=== PATIENT | female | born 1975 | race Caucasian/White ===

== ENCOUNTER 2021-02-19 10:44 | Inpatient (IN) ==
[2021-02-19 10:52] VITALS: BMI 29.5
[2021-02-19] MEDS ORDERED: NS 1000 ML 1,000 ML IV STA (11:39)
--- NOTE | 2021-02-19 11:39 | ED.ABDFE ---
HPI Time Seen Time Seen by Provider: 02/19/21 11:27 PCP Primary Care Physician: Ty HPI Comment HPI Comment: PATIENT WITH HISTORY OF PANCREATITIS, COMPLAINS OF EPIGASTRIC PAIN X 3 DAYS, OCCASIONAL EMESIS, EVALUATED AT HOSPITAL IN [place] YESTERDAY. HAS INCREASING PAIN DISCOMFORT. PAIN SCALE 5/10, RADIATES TO BACK. DENIES FEVER, DIARRHEA, URINARY SYMPTOMS. Complaint Doctors Chief Complaint Comments: PATIENT WITH A HISTORY OF IDIOPATHIC PANCREATITIS COMPLAINS OF EPIGASTRIC PAIN X 3 DAYS, PAIN SCALE 5/10 AFTER TAKING TRAMADOL, HAS OCCASIONAL NAUSEA AND EMESIS. DENIES DIARRHEA, FEVER URINARY SYM PTOMS. Chief Complaint:: Pt c/o abd pain since Thursday. She states she was seen in [place] last night and diagnosed with pancreatitis. Pt says Dr. Crawford advised her to come here for admission. Pt states Morphine increases her pain. COVID-19 Coronavirus risk:travel/contact w/high risk person: No Has patient experienced Coronavirus symptoms: No Reviewed Nurses Notes Review: Yes Source History Provided: Patient Mode of arrival Mode of Arrival: Ambulatory Timing Onset of Chief Complaint: 02/02/21 Came on: Gradually Duration Since Onset: Since Onset How lon Duration: Days Location Location: Epigastric Severity Severity: Moderate Quality Quality: Cramping and Sharp Context History of: Abdominal surgery Modifying factors Worsening Factors: Nothing Associated signs and symptoms Associated Signs and Symptoms: Nausea and Vomiting PMH PMH Past Medical History: Yes Past Medical History: Arthritis and GERD Past Medical History Comment: pancreatitis, SVT, intestinal malrotation Past Surgical History: Yes Surgical History: Appendectomy, Cholecystectomy and Hysterectomy Past Surgical History Comment: LADDS Family History History of Family Medical Conditions: Yes Family Medical History: Cancer and Hypertension Social History Does patient currently use any type of tobacco product: No Have you used tobacco products in the last 12 months: No Type of Tobacco Use: None Does any household member use tobacco: No Alcohol Use: None Do you use any recreational Drugs:: No Lives With: Family Lives Where: Home Travel Risk Coronavirus risk:travel/contact w/high risk person: No Has patient experienced Coronavirus symptoms: No Infectious screening In the last 2 months have you had wt loss of >10#?: NO Have you had fever, night sweats or hemotysis?: No Have you traveled outside the country in the last 6 months?: No Isolation: Standard ROS Review of Systems Constitutional: No Symptoms Reported Eyes: No Symptoms Reported ENTM: No Symptoms Reported Respiratoy: No Symptoms Reported Cardiovascular: No Symptoms Reported Gastrointestinal/Abdominal: See HPI, Abdominal Pain, Nausea and Vomiting Genitourinary: No Symptoms Reported Neurological: No Symptoms Reported Musculoskeletal: No Symptoms Reported Integumentary: No Symptoms Reported Hematologic/Lymphatic: No Symptoms Reported Endocrine: No Symptoms Reported Psychiatric: No Symptoms Reported All Other Systems: Reviewed and Negative PE Vital Signs Vitals: Temperature 97.6 F Pulse Rate [Left Radial] 55 Pulse Rate 68 Respiratory Rate 16 Blood Pressure [Right Arm] 127/72 Blood Pressure 141/80 O2 Sat by Pulse Oximetry 99 General Limitations: No Limitations and Language Barrier General Appearance: Alert and In No Apparent Distress Head Head Exam: Normal Inspection Eyes Eye exam: Normal Appearance, PERRL and EOMI ENT ENT Exam: Normal Exam and Normal Oropharynx Neck Neck Exam: Normal Inspection Chest Chest Inspection: Normal Inspection Respiratory Respiratory Exam: Normal Lung Sounds Bilat Respiratory Exam: Bilateral: Clear to Auscultation Cardiovascular Cardiovascular Exam: Regular Rate and Normal Rhythm Abdominal Exam Abdominal Exam: Normal Inspection, Normal Bowel Sounds, Soft and Tenderness (MODERATE EPIGASTRIC TENDERNESS) Abdominal Tenderness: Epigastrium Rectal Rectal Exam: Deferred Back Back Exam: Normal Inspection Extremeties Extremities Exam: Normal Inspection and Full ROM Neurologic Neurological Exam: Alert and Oriented X3 Psychiatric Psychiatric Exam: Normal Affect and Normal Mood Skin Skin Exam: Warm, Dry and Intact MDM Differential Diagnosis Differential Diagnosis- Considerations may include:: Gastritus/PUD, Inflammatory BD and Pancreatitis COURSE Treatment Treatment: IV NORMAL SALINE 250ML/HR, ZOFRAN 4MG, DILAUDID 1MG IV X 2 DOSES, PROTONIX 40MG IV Consultation Call Returned: 14:30 Consultation Comments: DISCUSSED FINDINGS WITH DR LOUISE FOR ADMIT TO INPATIENT [facility] Labs Reviewed Laboratory Results Reviewed?: Yes Result Diagrams: 02/19/21 14:21 02/19/21 14:21 Laboratory: WBC 15.2 X10^3/uL (3.6-10.0) H 02/19/21 14:21 RBC 4.75 X10^6/uL (3.5-5.4) 02/19/21 14:21 Hgb 13.5 g/dL (12.0-16.0) 02/19/21 14:21 Hct 41.3 % (36.0-47.0) 02/19/21 14:21 MCV 86.9 fL (80.0-100.0) 02/19/21 14:21 MCH 28.5 pg (27.0-34.0) 02/19/21 14:21 MCHC 32.8 g/dL (33.0-35.0) L 02/19/21 14:21 RDW 14.7 % (11.6-16.5) 02/19/21 14:21 Plt Count 318 X10^3/uL (150.0-450.0) 02/19/21 14:21 MPV 7.6 fL (7.4-11.0) 02/19/21 14:21 Neut % (Auto) 83.8 % (42.0-75.0) H 02/19/21 14:21 Lymph % (Auto) 10.7 % (21.0-51.0) L 02/19/21 14:21 [place] % (Auto) 5.2 % (0.0-13.0) 02/19/21 14:21 Eos % (Auto) 0.1 % (0.9-2.9) L 02/19/21 14:21 Baso % (Auto) 0.2 % (0.2-1.0) 02/19/21 14:21 Neut # (Auto) 12.7 x10^3/uL (2.2-4.8) H 02/19/21 14:21 Lymph # (Auto) 1.6 X10^3/uL (1.3-2.9) 02/19/21 14:21 [place] # (Auto) 0.8 x10^3/uL (0.3-0.8) 02/19/21 14:21 Eos # (Auto) 0.0 x10^3/uL (0.0-0.2) 02/19/21 14:21 Baso # (Auto) 0.0 X10^3/uL (0.0-0.1) 02/19/21 14:21 Absolute Nucleated RBC 0.0 /100WBC 02/19/21 14:21 Sodium 141 mmol/L (136-145) 02/19/21 14:21 Corrected Sodium TNP 02/19/21 14:21 Potassium 4.9 mmol/L (3.5-5.1) 02/19/21 14:21 Chloride 106 mmol/L (98-107) 02/19/21 14:21 Carbon Dioxide 28.6 mmol/L (21-32) 02/19/21 14:21 BUN 21 mg/dL (7-18) H 02/19/21 14:21 Creatinine 0.99 mg/dL (0.55-1.02) 02/19/21 14:21 Est GFR (MDRD) Af Amer > 60 (>60) 02/19/21 14:21 Est GFR (MDRD) Non-Af > 60 (>60) 02/19/21 14:21 Glucose 105 mg/dL (65-99) H 02/19/21 14:21 Calcium 8.6 mg/dL (8.5-10.1) 02/19/21 14:21 Corrected Calcium TNP 02/19/21 14:21 Magnesium 2.5 mg/dL (1.7-2.9) 02/19/21 11:44 Total Bilirubin 0.50 mg/dL (0.2-1.0) 02/19/21 14:21 AST 12 Units/L (15-37) L 02/19/21 14:21 ALT 21 Units/L (12-78) 02/19/21 14:21 Alkaline Phosphatase 76 Units/L (46-116) 02/19/21 14:21 Total Protein 7.6 g/dL (6.4-8.2) 02/19/21 14:21 Albumin 3.7 g/dL (3.4-5.0) 02/19/21 14:21 Globulin 3.9 g/dL (2.5-4.5) 02/19/21 14:21 Albumin/Globulin Ratio 0.9 Ratio (1.1-2.1) L 02/19/21 14:21 Amylase 235 Units/L (25-115) H 02/19/21 14:21 Lipase 1528 Units/L (73-393) H 02/19/21 14:21 Specimen Type Clean catch urine 02/19/21 12:03 Urine Color Yellow (YELLOW) 02/19/21 12:03 Urine Appearance Clear (CLEAR) 02/19/21 12:03 Urine pH 6.0 (5.0 - 8.0) 02/19/21 12:03 Ur Specific [place] 1.015 (1.000-1.030) 02/19/21 12:03 Urine Protein Negative (NEGATIVE) 02/19/21 12:03 Urine Glucose (UA) Negative (NEGATIVE) 02/19/21 12:03 Urine Ketones Negative (NEGATIVE) 02/19/21 12:03 Urine Occult Blood 1+ (NEGATIVE) 02/19/21 12:03 Urine Nitrite Negative (NEGATIVE) 02/19/21 12:03 Urine Bilirubin Negative (NEGATIVE) 02/19/21 12:03 Urine Urobilinogen Normal (NORMAL) 02/19/21 12:03 Ur Leukocyte Esterase Negative (NEGATIVE) 02/19/21 12:03 Urine RBC 0-2 /HPF (0-3) 02/19/21 12:03 Urine WBC None seen /HPF (0-5) 02/19/21 12:03 Ur Squamous Epith Cells Many /HPF (NEGATIVE) 02/19/21 12:03 Urine Bacteria Trace /HPF (NEGATIVE) 02/19/21 12:03 Ur Culture Indicated? No/not indicated 02/19/21 12:03 SARS-CoV-2 (PCR) Negative (NEGATIVE) 02/19/21 14:21 Influenza Type A (PCR) Negative (NEGATIVE) 02/19/21 14:21 Influenza Type B (PCR) Negative (NEGATIVE) 02/19/21 14:21 RSV (PCR) Negative (NEGATIVE) 02/19/21 14:21 XRAY XRAY Interpreted by: Radiologist (ABDOMINAL PELVIC CT WITH IV CONTRAST FROM [facility] 02/19/21 CONSISTENT WITH NO ACUTE INTRA-ABEOMINAL FINDINGS) X-ray Results: ABDOMINAL PELVIC CT WITHOUT CONTRAST- SMALL HIATAL HERNIA. NO ACUTE PROCESS EKG Asher: Normal Rhythm: NSR Block: None Hypertrophy: None ST: Normal Opioid Opioid Risk Tool Age (Lul box if 16-45): No History of Preadolescent Sexual Abuse: No Total: 0 Total Score Risk Category: Low Risk Copyright: Jerzy KIMBLE predicting aberrant behaviors Diagnosis Discharge Problem: Acute pancreatitis
[2021-02-19] MEDS ORDERED: NS 1000 ML 1,000 ML ONE ×2 (11:43→14:53)
[2021-02-19 12:02] LABS: BASOPHILS # (AUTO) 0.1 X10^3/uL (0.0-0.1); BASOPHILS % (AUTO) 0.3 % (0.2-1.0); EOSINOPHILS % (AUTO) 0.2 % (0.9-2.9); HEMATOCRIT 43.5 % (36.0-47.0); HEMOGLOBIN 14.4 g/dL (12.0-16.0); LYMPHOCYTES # (AUTO) 2.4 X10^3/uL (1.3-2.9); LYMPHOCYTES % (AUTO) 12.9 % (21.0-51.0); MEAN CORPUSCULAR HEMOGLOBIN 28.8 pg (27.0-34.0); MEAN CORPUSCULAR HGB CONC 33.1 g/dL (33.0-35.0); MEAN CORPUSCULAR VOLUME 86.8 fL (80.0-100.0); MEAN PLATELET VOLUME 7.5 fL (7.4-11.0); MONOCYTES # (AUTO) 0.8 x10^3/uL (0.3-0.8); MONOCYTES % (AUTO) 4.3 % (0.0-13.0); NEUTROPHILS # (AUTO) 15.1 x10^3/uL (2.2-4.8); NEUTROPHILS % (AUTO) 82.3 % (42.0-75.0); PLATELET COUNT 387 X10^3/uL (150.0-450.0); RED BLOOD COUNT 5.01 X10^6/uL (3.5-5.4); RED CELL DISTRIBUTION WIDTH 14.7 % (11.6-16.5); WHITE BLOOD COUNT 18.3 X10^3/uL (3.6-10.0)
[2021-02-19 12:11] LABS: BILIRUBIN,URINE NEGATIVE (NEGATIVE); BLOOD/HEMOGLOBIN,URINE 1+ (NEGATIVE); GLUCOSE, URINE NEGATIVE (NEGATIVE); KETONES,URINE NEGATIVE (NEGATIVE); LEUKOCYTE ESTERASE ,URINE NEGATIVE (NEGATIVE); NITRITES,URINE NEGATIVE (NEGATIVE); PROTEIN,URINE NEGATIVE (NEGATIVE); UROBILINOGEN,URINE NORMAL (NORMAL)
[2021-02-19 12:19] LABS: APPEARANCE,URINE CLEAR (CLEAR); BACTERIA,URINE TRACE /HPF (NEGATIVE); COLOR,URINE YELLOW (YELLOW); RBC,URINE 0-2 /HPF (0-3); SQUAMOUS EPITHELIAL CELL,UR MANY /HPF (NEGATIVE)
[2021-02-19 12:27] LABS: ALANINE AMINOTRANSFERASE 19 Units/L (12-78); ALKALINE PHOSPHATASE 82 Units/L (46-116); AMYLASE 265 Units/L (25-115); ASPARTATE AMINO TRANSFERASE 14 Units/L (15-37); BLOOD UREA NITROGEN 25 mg/dL (7-18); CALCIUM 9.1 mg/dL (8.5-10.1); CARBON DIOXIDE 25.8 mmol/L (21-32); CHLORIDE 105 mmol/L (98-107); CREATININE 0.99 mg/dL (0.55-1.02); MAGNESIUM 2.5 mg/dL (1.7-2.9); SODIUM 141 mmol/L (136-145); TOTAL PROTEIN 8.3 g/dL (6.4-8.2); eGFR NON BLACK RACES > 60 (>60)
[2021-02-19 12:29] LABS: LIPASE 1448 Units/L (73-393)
[2021-02-19] MEDS ORDERED: DILAUDID INJ IVP ONE ×2 (12:42→14:20)
[2021-02-19] MEDS ORDERED: ZOFRAN INJ 4 MG VIAL ONE (12:43)
[2021-02-19] MEDS ORDERED: DILAUDID INJ ONE ×2 (12:43→14:53)
[2021-02-19] MEDS ORDERED: ZOFRAN INJ 4 MG VIAL IVP ONE (12:48)
[2021-02-19 14:37] LABS: BASOPHILS % (AUTO) 0.2 % (0.2-1.0); EOSINOPHILS % (AUTO) 0.1 % (0.9-2.9); HEMATOCRIT 41.3 % (36.0-47.0); HEMOGLOBIN 13.5 g/dL (12.0-16.0); LYMPHOCYTES # (AUTO) 1.6 X10^3/uL (1.3-2.9); LYMPHOCYTES % (AUTO) 10.7 % (21.0-51.0); MEAN CORPUSCULAR HEMOGLOBIN 28.5 pg (27.0-34.0); MEAN CORPUSCULAR HGB CONC 32.8 g/dL (33.0-35.0); MEAN CORPUSCULAR VOLUME 86.9 fL (80.0-100.0); MEAN PLATELET VOLUME 7.6 fL (7.4-11.0); MONOCYTES # (AUTO) 0.8 x10^3/uL (0.3-0.8); MONOCYTES % (AUTO) 5.2 % (0.0-13.0); NEUTROPHILS # (AUTO) 12.7 x10^3/uL (2.2-4.8); NEUTROPHILS % (AUTO) 83.8 % (42.0-75.0); PLATELET COUNT 318 X10^3/uL (150.0-450.0); RED BLOOD COUNT 4.75 X10^6/uL (3.5-5.4); RED CELL DISTRIBUTION WIDTH 14.7 % (11.6-16.5); WHITE BLOOD COUNT 15.2 X10^3/uL (3.6-10.0)
[2021-02-19 14:48] LABS: ALANINE AMINOTRANSFERASE 21 Units/L (12-78); ALBUMIN 3.7 g/dL (3.4-5.0); ALKALINE PHOSPHATASE 76 Units/L (46-116); AMYLASE 235 Units/L (25-115); ASPARTATE AMINO TRANSFERASE 12 Units/L (15-37); BLOOD UREA NITROGEN 21 mg/dL (7-18); CALCIUM 8.6 mg/dL (8.5-10.1); CARBON DIOXIDE 28.6 mmol/L (21-32); CHLORIDE 106 mmol/L (98-107); CREATININE 0.99 mg/dL (0.55-1.02); SODIUM 141 mmol/L (136-145); TOTAL PROTEIN 7.6 g/dL (6.4-8.2); eGFR NON BLACK RACES > 60 (>60)
[2021-02-19 14:49] LABS: LIPASE 1528 Units/L (73-393)
[2021-02-19] MEDS ORDERED: NS 1000 ML 1,000 ML IV SCH (16:00)
--- NOTE | 2021-02-19 16:23 | CT ---
HISTORYPANCREATITIS, ABD PAINSTUDYABDOMEN/PELVIS W/O CONCOMPARISONNoneTECHNIQUEMultiple CT axial images of the abdomen and pelvis were obtained without IV contrast. Coronal and sagittal images were reconstructed. Dose reduction techniques included Automated Exposure Control (AEC) and adjustment of mA and kV.FINDINGSThe lung bases are clear. Heart size is normal.The liver is normal in size and configuration. Surgical clips are present in the gallbladder fossa from a cholecystectomy. The spleen is normal in size and shape.The adrenal glands are normal. The pancreas is normal. No retroperitoneal edema. No peripancreatic fluid collections.The kidneys have normal size and shape. No abnormal calcification is present. There is no hydronephrosis or significant perirenal edema. The ureters are not dilated. The bladder is normally distended. It has no wall thickening or perivesical edema.Hiatal hernia measures about 3 cm. The bowel is not dilated. There is no wall thickening in the bowel or edema around the bowel. A normal appendix is not identified. But there is no inflammation around the cecum or at the expected location of the appendix. There are diverticula in the colon. But there is no wall thickening or pericolonic edema to suggest acute diverticulitis.No uterus identified. No pelvic mass or free fluid. No significant bone abnormality. No abdominal wall or inguinal hernia.IMPRESSION1. Small hiatal hernia2. Colonic diverticulaElectronically signed by: Blanco Moore (Feb 19, 2021 16:20:22)
[2021-02-19] MEDS: DILAUDID INJ IVP PRN (18:56)
[2021-02-19] MEDS: NS 1000 ML 1,000 ML IV SCH (21:41)
[2021-02-20] MEDS: NS 1000 ML 1,000 ML IV SCH ×6 (00:30→23:43)
[2021-02-20] MEDS: DILAUDID INJ IVP PRN ×5 (00:34→20:40)
[2021-02-20] MEDS: ZOFRAN INJ 4 MG VIAL IVP PRN ×3 (01:38→16:32)
[2021-02-20 05:18] LABS: BASOPHILS % (AUTO) 0.1 % (0.2-1.0); EOSINOPHILS % (AUTO) 0.2 % (0.9-2.9); HEMATOCRIT 37.8 % (36.0-47.0); HEMOGLOBIN 12.5 g/dL (12.0-16.0); LYMPHOCYTES # (AUTO) 1.9 X10^3/uL (1.3-2.9); LYMPHOCYTES % (AUTO) 14.2 % (21.0-51.0); MEAN CORPUSCULAR HEMOGLOBIN 28.7 pg (27.0-34.0); MEAN CORPUSCULAR HGB CONC 33.2 g/dL (33.0-35.0); MEAN CORPUSCULAR VOLUME 86.5 fL (80.0-100.0); MEAN PLATELET VOLUME 7.9 fL (7.4-11.0); MONOCYTES # (AUTO) 0.6 x10^3/uL (0.3-0.8); MONOCYTES % (AUTO) 4.8 % (0.0-13.0); NEUTROPHILS # (AUTO) 10.6 x10^3/uL (2.2-4.8); NEUTROPHILS % (AUTO) 80.7 % (42.0-75.0); PLATELET COUNT 307 X10^3/uL (150.0-450.0); RED BLOOD COUNT 4.37 X10^6/uL (3.5-5.4); RED CELL DISTRIBUTION WIDTH 14.5 % (11.6-16.5); WHITE BLOOD COUNT 13.2 X10^3/uL (3.6-10.0)
[2021-02-20 05:30] LABS: ALANINE AMINOTRANSFERASE 16 Units/L (12-78); ALBUMIN 3.2 g/dL (3.4-5.0); ALKALINE PHOSPHATASE 70 Units/L (46-116); AMYLASE 163 Units/L (25-115); ASPARTATE AMINO TRANSFERASE 10 Units/L (15-37); BLOOD UREA NITROGEN 15 mg/dL (7-18); CALCIUM 8.2 mg/dL (8.5-10.1); CARBON DIOXIDE 26.9 mmol/L (21-32); CHLORIDE 108 mmol/L (98-107); COR CA(FOR HYPOALB) 8.8 mg/dL (8.5-10.1); LIPASE 812 Units/L (73-393); SODIUM 140 mmol/L (136-145); TOTAL PROTEIN 6.8 g/dL (6.4-8.2); eGFR NON BLACK RACES > 60 (>60)
[2021-02-20] MEDS ORDERED: PROTONIX INJ 40 MG VIAL IVP SCH (09:00)
[2021-02-20] MEDS: CARDIZEM CD 240 MG 24-HR PO SCH (09:44)
[2021-02-20] MEDS ORDERED: PHENERGAN INJ 25 MG IM PRN (12:39)
--- NOTE | 2021-02-20 19:23 | DR.H&P ---
H&P - History & Physical for Day of: H&P Date: 02/19/21 - Chief Complaint Chief Complaint: abdominal pain, nausea - History of Present Illness History of Present Illness: Pt c/o abd pain since Thursday. She states she was seen in [place] last night and diagnosed with pancreatitis with ct of abd with contrast. Pt says Dr. Crawford advised her to come here for admission. Pt states Morphine increases her pain. PATIENT WITH A HISTORY OF IDIOPATHIC PANCREATITIS COMPLAINS OF EPIGASTRIC PAIN X 3 DAYS, PAIN SCALE 5/10 AFTER TAKING TRAMADOL, HAS OCCASIONAL NAUSEA AND EMESIS. DENIES DIARRHEA, FEVER URINARY SYMPTOMS. - Past Medical History Past Medical History: GERD, Arthritis - Past Surgical History Surgical History: Cholecystectomy, Hysterectomy, Other - Family History Family Medical History: Cancer - Social History Does patient currently use any type of tobacco product: No Have you used tobacco products in the last 12 months: No Type of Tobacco Use: None Does any household member use tobacco: No Alcohol Use: None Drug Use: None - Medications Home Medications: doxycycline Allergy (Verified 02/19/21 10:52) latex Allergy (Verified 02/19/21 10:52) CONTINUE taking the following medications baclofen 20 mg PO PRN PRN 02/19/21 [History] clonidine HCl 0.1 mg PO PRN PRN 02/19/21 [History] diltiazem HCl 240 mg PO DAILY 02/19/21 [History] ergocalciferol (vitamin D2) 1,250 mcg PO WEEKLY 02/19/21 [History] ferrous sulfate [FeroSul] 325 mg PO DAILY 02/19/21 [History] gabapentin 300 mg PO HS 02/19/21 [History] ondansetron HCl 4 mg PO PRN PRN 02/19/21 [History] pantoprazole 40 mg PO BID 02/19/21 [History] testosterone cypionate 200 mg SUBCUT MONTHLY 02/19/21 [History] tramadol 50 mg PO PRN PRN 02/19/21 [History] - Review of Systems Constitutional: Malaise Eyes: No Symptoms Reported ENT: No Symptoms Reported Cardiovascular: No Symptoms Reported Gastrointestinal: Nausea, Abdominal Pain Genitourinary: No Symptoms Reported Musculoskeletal: Back Pain Skin: No Symptoms Reported Neurological: No Symptoms Reported - Physical Exam Vital Signs: Temperature 98.6 F Pulse Rate [Left Radial] 67 Pulse Rate 68 Respiratory Rate 18 Blood Pressure [Left Arm] 151/84 Blood Pressure [Right Arm] 142/76 Blood Pressure 141/80 O2 Sat by Pulse Oximetry 98 Oriented: Normal Eyes: Normal Ear: Normal Nose: Normal Throat: Normal Respiratory: Clear Throughout Cardiovascular: Normal : Normal Auscultation: Bowel Sounds: Normal Palpation: Normal Tenderness: LUQ, Epigastric Skin: Normal Musculoskeletal: Back:Lumbar Psychiatric: Normal Mood Description: Calm Speech Pattern: Clear, Appropriate - Assessment/Plan (1) Acute pancreatitis Status: Acute Plan: ADMIT, NPO. IV HYDRATION, PAIN CONTROL. CT ABD PELVIS IN ER, OBTAIN CT SCAN RESULTS FROM [facility] ER. REPEAT AMYLASE AND LIPASE. CONFIRM HOME MEDICATION, I&OS (2) Lumbago with sciatica Status: Acute - Allergies Allergies/Adverse Reactions: Allergies Allergy/AdvReac Type Severity Reaction Status Date / Time doxycycline Allergy Verified 02/19/21 10:52 latex Allergy Verified 02/19/21 10:52
--- NOTE | 2021-02-20 19:26 | PCM.PROG ---
Progress Note - Progress Note for Day of Date of Exam: 02/20/21 - Subjective Subjective: PT IS 45WF ER ADMISSION WITH ACUTE PANCREATITIS. PT HAD CT ABD/PELVIS IN ER WITHOUT ACUTE ABDOMINAL FINDINGS. PT IS IV PAIN CONTROL AND IV HYDRATION. PT IS STILL NPO WITH MILD IMPROVING PAIN. PT CONTINUES WITH LUQ TENDERNESS ON PALPATION. PT HOME CARDIZEM HAS BEEN RESUMED, NS DECREASED TO 75C C/HR WITH IM PHENERGAN FOR NAUSEA. PT DENIES ANY DIARRHEA OR VOMITING THIS AM. SLIGHT IMPROVEMENT IN AMYLASE AND LIPASE THIS AM. PT SEES DR RINCON ON ROUTINE BASIS AND MD CONSULT PLACED FOR THURSDAY AM. - Past Medical Family Social History Past Med/Fam/Surg Hx: No changes since H&P Allergies: Allergies doxycycline Allergy (Verified 02/19/21 10:52) latex Allergy (Verified 02/19/21 10:52) - Review of Systems ROS: No change since H&P - Vital Signs and I&O's Vital Signs: Temperature 98.6 F Pulse Rate [Left Radial] 67 Pulse Rate 68 Respiratory Rate 18 Blood Pressure [Left Arm] 151/84 Blood Pressure [Right Arm] 142/76 Blood Pressure 141/80 O2 Sat by Pulse Oximetry 98 Intake and Output: Intake & Output 02/18/21 02/19/21 02/20/21 02/21/21 11:59 11:59 11:59 11:59 Intake Total 3056 / 3056 Balance 3056 / 3056 - Physical Exam Oriented: Normal Eyes: Normal Ear: Normal Nose: Normal Throat: Normal Respiratory: Normal Cardiovascular: Normal : Normal Auscultation: Bowel Sounds: Normal Tenderness: LUQ, Epigastric Skin: Normal Musculoskeletal: Back:Lumbar Psychiatric: Normal Mood Description: Calm Speech Pattern: Clear, Appropriate - Laboratory and Diagnostics Result Diagrams: 02/20/21 04:06 02/20/21 04:06 Labs: Laboratory WBC 13.2 X10^3/uL (3.6-10.0) H 02/20/21 04:06 RBC 4.37 X10^6/uL (3.5-5.4) 02/20/21 04:06 Hgb 12.5 g/dL (12.0-16.0) 02/20/21 04:06 Hct 37.8 % (36.0-47.0) 02/20/21 04:06 MCV 86.5 fL (80.0-100.0) 02/20/21 04:06 MCH 28.7 pg (27.0-34.0) 02/20/21 04:06 MCHC 33.2 g/dL (33.0-35.0) 02/20/21 04:06 RDW 14.5 % (11.6-16.5) 02/20/21 04:06 Plt Count 307 X10^3/uL (150.0-450.0) 02/20/21 04:06 MPV 7.9 fL (7.4-11.0) 02/20/21 04:06 Neut % (Auto) 80.7 % (42.0-75.0) H 02/20/21 04:06 Lymph % (Auto) 14.2 % (21.0-51.0) L 02/20/21 04:06 [place] % (Auto) 4.8 % (0.0-13.0) 02/20/21 04:06 Eos % (Auto) 0.2 % (0.9-2.9) L 02/20/21 04:06 Baso % (Auto) 0.1 % (0.2-1.0) L 02/20/21 04:06 Neut # (Auto) 10.6 x10^3/uL (2.2-4.8) H 02/20/21 04:06 Lymph # (Auto) 1.9 X10^3/uL (1.3-2.9) 02/20/21 04:06 [place] # (Auto) 0.6 x10^3/uL (0.3-0.8) 02/20/21 04:06 Eos # (Auto) 0.0 x10^3/uL (0.0-0.2) 02/20/21 04:06 Baso # (Auto) 0.0 X10^3/uL (0.0-0.1) 02/20/21 04:06 Absolute Nucleated RBC 0.0 /100WBC 02/20/21 04:06 Sodium 140 mmol/L (136-145) 02/20/21 04:06 Corrected Sodium TNP 02/20/21 04:06 Potassium 4.6 mmol/L (3.5-5.1) 02/20/21 04:06 Chloride 108 mmol/L (98-107) H 02/20/21 04:06 Carbon Dioxide 26.9 mmol/L (21-32) 02/20/21 04:06 BUN 15 mg/dL (7-18) 02/20/21 04:06 Creatinine 0.80 mg/dL (0.55-1.02) 02/20/21 04:06 Est GFR (MDRD) Af Amer > 60 (>60) 02/20/21 04:06 Est GFR (MDRD) Non-Af > 60 (>60) 02/20/21 04:06 Glucose 103 mg/dL (65-99) H 02/20/21 04:06 Hemoglobin A1c 5.8 % 02/20/21 04:06 Calcium 8.2 mg/dL (8.5-10.1) L 02/20/21 04:06 Corrected Calcium 8.8 mg/dL (8.5-10.1) 02/20/21 04:06 Magnesium 2.5 mg/dL (1.7-2.9) 02/19/21 11:44 Total Bilirubin 0.50 mg/dL (0.2-1.0) 02/20/21 04:06 AST 10 Units/L (15-37) L 02/20/21 04:06 ALT 16 Units/L (12-78) 02/20/21 04:06 Alkaline Phosphatase 70 Units/L (46-116) 02/20/21 04:06 Total Protein 6.8 g/dL (6.4-8.2) 02/20/21 04:06 Albumin 3.2 g/dL (3.4-5.0) L 02/20/21 04:06 Globulin 3.6 g/dL (2.5-4.5) 02/20/21 04:06 Albumin/Globulin Ratio 0.9 Ratio (1.1-2.1) L 02/20/21 04:06 Triglycerides 64 mg/dL (0-150) 02/19/21 21:50 Cholesterol 209 mg/dL (0-200) H 02/19/21 21:50 LDL Cholesterol, Calc 127 mg/dL (0-100) H 02/19/21 21:50 HDL Cholesterol 69 mg/dL (40-60) H 02/19/21 21:50 Cholesterol/HDL Ratio 3.0 (0.0-5.0) 02/19/21 21:50 Amylase 163 Units/L (25-115) H 02/20/21 04:06 Lipase 812 Units/L (73-393) H 02/20/21 04:06 Specimen Type Clean catch urine 02/19/21 12:03 Urine Color Yellow (YELLOW) 02/19/21 12:03 Urine Appearance Clear (CLEAR) 02/19/21 12:03 Urine pH 6.0 (5.0 - 8.0) 02/19/21 12:03 Ur Specific [place] 1.015 (1.000-1.030) 02/19/21 12:03 Urine Protein Negative (NEGATIVE) 02/19/21 12:03 Urine Glucose (UA) Negative (NEGATIVE) 02/19/21 12:03 Urine Ketones Negative (NEGATIVE) 02/19/21 12:03 Urine Occult Blood 1+ (NEGATIVE) 02/19/21 12:03 Urine Nitrite Negative (NEGATIVE) 02/19/21 12:03 Urine Bilirubin Negative (NEGATIVE) 02/19/21 12:03 Urine Urobilinogen Normal (NORMAL) 02/19/21 12:03 Ur Leukocyte Esterase Negative (NEGATIVE) 02/19/21 12:03 Urine RBC 0-2 /HPF (0-3) 02/19/21 12:03 Urine WBC None seen /HPF (0-5) 02/19/21 12:03 Ur Squamous Epith Cells Many /HPF (NEGATIVE) 02/19/21 12:03 Urine Bacteria Trace /HPF (NEGATIVE) 02/19/21 12:03 Ur Culture Indicated? No/not indicated 02/19/21 12:03 SARS-CoV-2 (PCR) Negative (NEGATIVE) 02/19/21 14:21 Influenza Type A (PCR) Negative (NEGATIVE) 02/19/21 14:21 Influenza Type B (PCR) Negative (NEGATIVE) 02/19/21 14:21 RSV (PCR) Negative (NEGATIVE) 02/19/21 14:21 - Plan (1) Acute pancreatitis Status: Acute Plan: NPO, CONSULT DR RINCON. IV HYDRATION, PAIN CONTROL. CT ABD PELVIS IN ER, OBTAIN CT SCAN RESULTS FROM [facility] ER. REPEAT AMYLASE AND LIPASE. CONFIRM HOME MEDICATION, I&OS (2) Lumbago with sciatica Status: Acute
[2021-02-20] MEDS: PROTONIX INJ 40 MG VIAL IVP SCH (20:38)
--- NOTE | 2021-02-20 21:48 | DR.CONSULT ---
Consult - Consultation for Day of: Date: 02/20/21 - Chief Complaint Chief Complaint: Patient referred for pancreatitis. Patient with complaints of dyspepsia, nausea, upper abdominal pain, constipation - History of Present Illness History of Present Illness: Patient is a 45 yo female who was referred for pancreatitis. Patient with complaints of dyspepsia, nausea, upper abdominal pain, constipation relief with miralax. Last colon- 07/2020; last EGD- 11/28/20- esophageal stricture dilated, severe esophageal spasms seen, gastritis, benign fundic gland polyp, biopsy- gastritis. Hgb 12.5, Hct 37.8, Plt 307, BUN 15, Creatinine 0.80, T.Bili 0.5, AST 10, ALT 16, ALP 70, Lipase 812, Amylase 163.Abdomen and pelvis CT showed Small hiatal hernia and Colonic diverticula - Past Medical History Past Medical History: GERD, Arthritis - Past Surgical History Surgical History: Cholecystectomy, Hysterectomy, Other - Family History Family Medical History: Cancer - Social History Does patient currently use any type of tobacco product: No Have you used tobacco products in the last 12 months: No Type of Tobacco Use: None Does any household member use tobacco: No Alcohol Use: None Drug Use: None - Medications Home Medications: doxycycline Allergy (Verified 02/19/21 10:52) latex Allergy (Verified 02/19/21 10:52) CONTINUE taking the following medications baclofen 20 mg PO PRN PRN 02/19/21 [History] clonidine HCl 0.1 mg PO PRN PRN 02/19/21 [History] diltiazem HCl 240 mg PO DAILY 02/19/21 [History] ergocalciferol (vitamin D2) 1,250 mcg PO WEEKLY 02/19/21 [History] ferrous sulfate [FeroSul] 325 mg PO DAILY 02/19/21 [History] gabapentin 300 mg PO HS 02/19/21 [History] ondansetron HCl 4 mg PO PRN PRN 02/19/21 [History] pantoprazole 40 mg PO BID 02/19/21 [History] testosterone cypionate 200 mg SUBCUT MONTHLY 02/19/21 [History] tramadol 50 mg PO PRN PRN 02/19/21 [History] - Review of Systems Gastrointestinal: See HPI, Nausea, Abdominal Pain, Constipation. denies: Vomiting, Diarrhea, Melena, Hematochezia - Physical Exam Vital Signs: Temperature 97.6 F Pulse Rate [Left Radial] 51 Pulse Rate 68 Respiratory Rate 17 Blood Pressure [Left Arm] 142/71 Blood Pressure [Right Arm] 142/76 Blood Pressure 141/80 O2 Sat by Pulse Oximetry 98 Oriented: Normal Eyes: Normal Ear: Normal Nose: Normal Throat: Normal Respiratory: Clear Throughout Cardiovascular: Normal Auscultation: Bowel Sounds: Normal Palpation: Normal. negative: Spleen Enlarged, Liver Enlarged, Mass Pulsatile Tenderness: RUQ, LUQ, Epigastric Skin: Normal Musculoskeletal: Normal Psychiatric: Normal Mood Description: Calm Affect: Normal Speech Pattern: Clear, Appropriate - Plan Plan: Assessment. 1. Acute pancreatitis, likely idopathic r/o sphincter of oddi dysfunction, r/o autimmune pancreatitis(recent EGD negative for PUD, TG normal s/p cholecystectomy. Plan. 1. IV Hydration and pain control, Monitor Amylase and lipase, LFTs and electrolytes.Advance diet once lipase and painhave improved. May have ice chips and sips of water.If has recurrent pancreatitis will need EUS to evaluate pancreas. Plan reviewed with - Allergies Allergies/Adverse Reactions: Allergies Allergy/AdvReac Type Severity Reaction Status Date / Time doxycycline Allergy Verified 02/19/21 10:52 latex Allergy Verified 02/19/21 10:52
[2021-02-21] MEDS: NS 1000 ML 1,000 ML IV SCH ×4 (05:53→19:50)
[2021-02-21 06:11] LABS: BASOPHILS % (AUTO) 0.2 % (0.2-1.0); EOSINOPHILS # (AUTO) 0.1 x10^3/uL (0.0-0.2); EOSINOPHILS % (AUTO) 0.4 % (0.9-2.9); HEMATOCRIT 39.2 % (36.0-47.0); HEMOGLOBIN 12.9 g/dL (12.0-16.0); LYMPHOCYTES # (AUTO) 2.2 X10^3/uL (1.3-2.9); MEAN CORPUSCULAR HEMOGLOBIN 28.9 pg (27.0-34.0); MEAN CORPUSCULAR HGB CONC 33.1 g/dL (33.0-35.0); MEAN CORPUSCULAR VOLUME 87.3 fL (80.0-100.0); MEAN PLATELET VOLUME 7.5 fL (7.4-11.0); MONOCYTES # (AUTO) 0.7 x10^3/uL (0.3-0.8); MONOCYTES % (AUTO) 5.5 % (0.0-13.0); NEUTROPHILS # (AUTO) 9.5 x10^3/uL (2.2-4.8); NEUTROPHILS % (AUTO) 75.9 % (42.0-75.0); PLATELET COUNT 307 X10^3/uL (150.0-450.0); RED BLOOD COUNT 4.49 X10^6/uL (3.5-5.4); RED CELL DISTRIBUTION WIDTH 14.4 % (11.6-16.5); WHITE BLOOD COUNT 12.5 X10^3/uL (3.6-10.0)
[2021-02-21 06:23] LABS: ALANINE AMINOTRANSFERASE 19 Units/L (12-78); ALBUMIN 3.2 g/dL (3.4-5.0); ALKALINE PHOSPHATASE 74 Units/L (46-116); AMYLASE 121 Units/L (25-115); ASPARTATE AMINO TRANSFERASE 12 Units/L (15-37); BLOOD UREA NITROGEN 15 mg/dL (7-18); CALCIUM 8.4 mg/dL (8.5-10.1); CARBON DIOXIDE 25.2 mmol/L (21-32); CHLORIDE 107 mmol/L (98-107); CREATININE 0.85 mg/dL (0.55-1.02); LIPASE 550 Units/L (73-393); SODIUM 140 mmol/L (136-145); TOTAL PROTEIN 6.9 g/dL (6.4-8.2); eGFR NON BLACK RACES > 60 (>60)
[2021-02-21] MEDS: PROTONIX INJ 40 MG VIAL IVP SCH ×2 (09:26→21:46)
[2021-02-21] MEDS: CARDIZEM CD 240 MG 24-HR PO SCH (09:26)
[2021-02-21] MEDS: ZOFRAN INJ 4 MG VIAL IVP PRN (09:41)
[2021-02-21] MEDS: DILAUDID INJ IVP PRN (09:41)
--- NOTE | 2021-02-21 13:57 | PCM.PROG ---
Progress Note - Progress Note for Day of Date of Exam: 02/21/21 - Subjective Subjective: Pt. feels better, no worsening of abdominal pain with clear liquids so far. Pain has improved. - Past Medical Family Social History Past Med/Fam/Surg Hx: No changes since H&P Allergies: Allergies doxycycline Allergy (Verified 02/19/21 10:52) latex Allergy (Verified 02/19/21 10:52) - Review of Systems ROS: No change since H&P - Vital Signs and I&O's Vital Signs: Temperature 97.7 F Pulse Rate [Left Radial] 61 Pulse Rate 68 Respiratory Rate 20 Blood Pressure [Left Arm] 148/76 Blood Pressure [Right Arm] 142/76 Blood Pressure 141/80 O2 Sat by Pulse Oximetry 98 Intake and Output: Intake & Output 02/19/21 02/20/21 02/21/21 02/22/21 11:59 11:59 11:59 11:59 Intake Total 3056 / 3056 1208 / 1208 Balance 3056 / 3056 1208 / 1208 - Physical Exam Oriented: Normal Eyes: Normal. negative: Blurred Vision, Diplopia, Discharge, Pain, Redness, Photophobia, Other Ear: Normal. negative: Right, Left, Swelling, Ecchymosis, Hemotypanum, Abrasion, Laceration Nose: Normal. negative: Injected, Discharge, Blood, Other Throat: Normal. negative: Tonsillar Hypertrophy, Red, Exudate, Dry, Other Respiratory: Normal. negative: Right, Left, Generalized, Superior, Inferior, Diminished, Wheezes, Rales, Rhonchi, OTHER Cardiovascular: Normal. negative: Tachycardia, Bradycardia, Irregular, S3, S4, Systolic, Diastolic, Murmur, Edema, Other : Normal. negative: Dysuria, Hematuria, Frequency, Discharge, Testicular Pain, Bleeding, , Other Auscultation: Bowel Sounds: Normal Tenderness: RUQ, LUQ, Epigastric. negative: Normal, Diffuse, RLQ, LLQ, Periumbilical, Suprapubic, Mild, Moderate, Severe, Rebound, Guarding, Rigidity, Other Skin: Normal. negative: Decreased Turgur, Rash, Papular, Macular, Maculopapular, Vesicular, Pustular, Petechial, Red, Tender, Hot, Diaphoresis, Wound, Bruising, Ecchymosis, Other Musculoskeletal: Normal. negative: Right, Left, Shoulder, Clavicle, Arm, Elbow, Forearm, Wrist, Hand, Hip, Thigh, Knee, Leg, Ankle, Foot, Back:Thoracic, Back: Lumbar, Back:Midline, Back:Paraspinous, Pelvis, Swelling, Tender, Deformity, Pulse Deficit, Motor Deficit, Sensory Deficit, Instability, Crepitance Psychiatric: Normal Mood Description: Calm Affect: Normal Speech Pattern: Clear, Appropriate - Laboratory and Diagnostics Result Diagrams: 02/21/21 05:24 02/21/21 05:24 Labs: 02/19/21 21:50 Blood Blood Culture - Preliminary 02/19/21 22:00 Blood Blood Culture - Preliminary Laboratory WBC 12.5 X10^3/uL (3.6-10.0) H 02/21/21 05:24 RBC 4.49 X10^6/uL (3.5-5.4) 02/21/21 05:24 Hgb 12.9 g/dL (12.0-16.0) 02/21/21 05:24 Hct 39.2 % (36.0-47.0) 02/21/21 05:24 MCV 87.3 fL (80.0-100.0) 02/21/21 05:24 MCH 28.9 pg (27.0-34.0) 02/21/21 05:24 MCHC 33.1 g/dL (33.0-35.0) 02/21/21 05:24 RDW 14.4 % (11.6-16.5) 02/21/21 05:24 Plt Count 307 X10^3/uL (150.0-450.0) 02/21/21 05:24 MPV 7.5 fL (7.4-11.0) 02/21/21 05:24 Neut % (Auto) 75.9 % (42.0-75.0) H 02/21/21 05:24 Lymph % (Auto) 18.0 % (21.0-51.0) L 02/21/21 05:24 [place] % (Auto) 5.5 % (0.0-13.0) 02/21/21 05:24 Eos % (Auto) 0.4 % (0.9-2.9) L 02/21/21 05:24 Baso % (Auto) 0.2 % (0.2-1.0) 02/21/21 05:24 Neut # (Auto) 9.5 x10^3/uL (2.2-4.8) H 02/21/21 05:24 Lymph # (Auto) 2.2 X10^3/uL (1.3-2.9) 02/21/21 05:24 [place] # (Auto) 0.7 x10^3/uL (0.3-0.8) 02/21/21 05:24 Eos # (Auto) 0.1 x10^3/uL (0.0-0.2) 02/21/21 05:24 Baso # (Auto) 0.0 X10^3/uL (0.0-0.1) 02/21/21 05:24 Absolute Nucleated RBC 0.1 /100WBC 02/21/21 05:24 Sodium 140 mmol/L (136-145) 02/21/21 05:24 Corrected Sodium TNP 02/21/21 05:24 Potassium 4.5 mmol/L (3.5-5.1) 02/21/21 05:24 Chloride 107 mmol/L (98-107) 02/21/21 05:24 Carbon Dioxide 25.2 mmol/L (21-32) 02/21/21 05:24 BUN 15 mg/dL (7-18) 02/21/21 05:24 Creatinine 0.85 mg/dL (0.55-1.02) 02/21/21 05:24 Est GFR (MDRD) Af Amer > 60 (>60) 02/21/21 05:24 Est GFR (MDRD) Non-Af > 60 (>60) 02/21/21 05:24 Glucose 77 mg/dL (65-99) 02/21/21 05:24 Hemoglobin A1c 5.8 % 02/20/21 04:06 Calcium 8.4 mg/dL (8.5-10.1) L 02/21/21 05:24 Corrected Calcium 9.0 mg/dL (8.5-10.1) 02/21/21 05:24 Magnesium 2.5 mg/dL (1.7-2.9) 02/19/21 11:44 Total Bilirubin 0.70 mg/dL (0.2-1.0) 02/21/21 05:24 AST 12 Units/L (15-37) L 02/21/21 05:24 ALT 19 Units/L (12-78) 02/21/21 05:24 Alkaline Phosphatase 74 Units/L (46-116) 02/21/21 05:24 Total Protein 6.9 g/dL (6.4-8.2) 02/21/21 05:24 Albumin 3.2 g/dL (3.4-5.0) L 02/21/21 05:24 Globulin 3.7 g/dL (2.5-4.5) 02/21/21 05:24 Albumin/Globulin Ratio 0.9 Ratio (1.1-2.1) L 02/21/21 05:24 Triglycerides 64 mg/dL (0-150) 02/19/21 21:50 Cholesterol 209 mg/dL (0-200) H 02/19/21 21:50 LDL Cholesterol, Calc 127 mg/dL (0-100) H 02/19/21 21:50 HDL Cholesterol 69 mg/dL (40-60) H 02/19/21 21:50 Cholesterol/HDL Ratio 3.0 (0.0-5.0) 02/19/21 21:50 Amylase 121 Units/L (25-115) H 02/21/21 05:24 Lipase 550 Units/L (73-393) H 02/21/21 05:24 Specimen Type Clean catch urine 02/19/21 12:03 Urine Color Yellow (YELLOW) 02/19/21 12:03 Urine Appearance Clear (CLEAR) 02/19/21 12:03 Urine pH 6.0 (5.0 - 8.0) 02/19/21 12:03 Ur Specific [place] 1.015 (1.000-1.030) 02/19/21 12:03 Urine Protein Negative (NEGATIVE) 02/19/21 12:03 Urine Glucose (UA) Negative (NEGATIVE) 02/19/21 12:03 Urine Ketones Negative (NEGATIVE) 02/19/21 12:03 Urine Occult Blood 1+ (NEGATIVE) 02/19/21 12:03 Urine Nitrite Negative (NEGATIVE) 02/19/21 12:03 Urine Bilirubin Negative (NEGATIVE) 02/19/21 12:03 Urine Urobilinogen Normal (NORMAL) 02/19/21 12:03 Ur Leukocyte Esterase Negative (NEGATIVE) 02/19/21 12:03 Urine RBC 0-2 /HPF (0-3) 02/19/21 12:03 Urine WBC None seen /HPF (0-5) 02/19/21 12:03 Ur Squamous Epith Cells Many /HPF (NEGATIVE) 02/19/21 12:03 Urine Bacteria Trace /HPF (NEGATIVE) 02/19/21 12:03 Ur Culture Indicated? No/not indicated 02/19/21 12:03 SARS-CoV-2 (PCR) Negative (NEGATIVE) 02/19/21 14:21 Influenza Type A (PCR) Negative (NEGATIVE) 02/19/21 14:21 Influenza Type B (PCR) Negative (NEGATIVE) 02/19/21 14:21 RSV (PCR) Negative (NEGATIVE) 02/19/21 14:21 - Plan (1) Acute pancreatitis Status: Acute Plan: Clear liquids today. IV HYDRATION, PAIN CONTROL. REPEAT AMYLASE AND LIPASE tomorrow and if remains stable may advance to low fat diet gradually.
--- NOTE | 2021-02-21 18:50 | PCM.PROG ---
Progress Note - Progress Note for Day of Date of Exam: 02/21/21 - Subjective Subjective: IS A 45 YEAR OLD PATIENT OF . SHE WAS ADMITTED FOR TREATMENT OF PANCREATITIS. SHE HAS A HISTORY OF IDOPATHIC PANCREATITIS AND IS FOLLOWED CLOSELY BY . TODAY, SHE IS ALERT AND ORIENTED, LYING IN BED ON MORNING ROUNDS. SHE CONTINUES WITH COMPLAINTS OF LUQ ABDOMINAL PAIN. SHE DOES ADMIT TO SLIGHT IMPROVEMENT IN SYMPTOMS SINCE ADMISSION. SHE DENIES NAUSEA THIS MORNING. PAIN HAS BEEN WELL CONTROLLED THROUGHOUT THE NIGHT. ON EXAMINATION, HEART IS REGULAR IN RATE AND RHYTHM. BILATERAL LUNGS ARE CLEAR TO AUSCULTATION. ABDOMEN IS ROUND, SOFT, AND NOTED WITH MILD LUQ TENDERNESS. NORMAL BOWEL SOUNDS NOTED IN ALL QUADRANTS. HER VITALS THIS MORNING ARE: 98.1-57-20-100%-161/76. LABS WERE OBTAINED. ABNORMAL LAB VALUES INCLUDE THE FOLLOWING: WBC 12.5, CALCIUM 8.4, AST 12, ALBUMIN 3.2, AMYLASE 121, LIPASE 550. BLOOD CULTURES ARE PENDING. CONSULTED WITH PATIENT YESTERDAY. HE HAS ORDERED ADDITIONAL LABS. SHE IS CURRENTLY RECEIVING: NORMAL SALINE AT 75 ML/HR, CARDIZEM CD 240MG PO DAILY, DILAUDID 1MG IV Q4H PRN, ZOFRAN 4MG IV Q6H PRN, PROTONIX 40MG IV BID, AND PROMETHAZINE 25MG IM Q6H PRN. WE WILL ADVANCE HER TO A CLEAR LIQUID DIET TODAY. OTHERWISE, WE WILL FOLLOW UP WITH AM LABS AND CONTINUE TO MONITOR. TIME SPENT ON CLINICAL ASSESSMENT, REVIEWING LABS AND IMAGING, DECISION MAKING, AND DOCUMENTATION GREATER THAN 45 MINUTES. - Past Medical Family Social History Past Med/Fam/Surg Hx: No changes since H&P Allergies: Allergies doxycycline Allergy (Verified 02/19/21 10:52) latex Allergy (Verified 02/19/21 10:52) - Review of Systems ROS: No change since H&P - Vital Signs and I&O's Vital Signs: Temperature 97.6 F Pulse Rate [Left Radial] 54 Pulse Rate 68 Respiratory Rate 20 Blood Pressure [Left Arm] 118/69 Blood Pressure [Right Arm] 142/76 Blood Pressure 141/80 O2 Sat by Pulse Oximetry 93 Intake and Output: Intake & Output 02/19/21 02/20/21 02/21/21 02/22/21 11:59 11:59 11:59 11:59 Intake Total 3056 / 3056 1208 / 1208 220 / 220 Balance 3056 / 3056 1208 / 1208 220 / 220 - Physical Exam Oriented: Normal Eyes: Normal. negative: Blurred Vision, Diplopia, Discharge, Pain, Redness, Photophobia, Other Ear: Normal. negative: Right, Left, Swelling, Ecchymosis, Hemotypanum, Abrasion, Laceration Nose: Normal. negative: Injected, Discharge, Blood, Other Throat: Normal. negative: Tonsillar Hypertrophy, Red, Exudate, Dry, Other Respiratory: Normal. negative: Right, Left, Generalized, Superior, Inferior, Diminished, Wheezes, Rales, Rhonchi, OTHER Cardiovascular: Normal. negative: Tachycardia, Bradycardia, Irregular, S3, S4, Systolic, Diastolic, Murmur, Edema, Other : Normal. negative: Dysuria, Hematuria, Frequency, Discharge, Testicular Pain, Bleeding, , Other Auscultation: Bowel Sounds: Normal Palpation: Normal Tenderness: LUQ. negative: Normal, Diffuse, RLQ, LLQ, Periumbilical, Suprapubic, Mild, Moderate, Severe, Rebound, Guarding, Rigidity, Other Skin: Normal. negative: Decreased Turgur, Rash, Papular, Macular, Maculopapular, Vesicular, Pustular, Petechial, Red, Tender, Hot, Diaphoresis, Wound, Bruising, Ecchymosis, Other Musculoskeletal: Normal. negative: Right, Left, Shoulder, Clavicle, Arm, Elbow, Forearm, Wrist, Hand, Hip, Thigh, Knee, Leg, Ankle, Foot, Back:Thoracic, Back:Lumbar, Back:Midline, Back:Paraspinous, Pelvis, Swelling, Tender, Deformity, Pulse Deficit, Motor Deficit, Sensory Deficit, Instability, Crepitance Psychiatric: Normal Mood Description: Calm Affect: Normal Speech Pattern: Clear, Appropriate - Laboratory and Diagnostics Result Diagrams: 02/21/21 05:24 02/21/21 05:24 Labs: 02/19/21 21:50 Blood Blood Culture - Preliminary 02/19/21 22:00 Blood Blood Culture - Preliminary Laboratory WBC 12.5 X10^3/uL (3.6-10.0) H 02/21/21 05:24 RBC 4.49 X10^6/uL (3.5-5.4) 02/21/21 05:24 Hgb 12.9 g/dL (12.0-16.0) 02/21/21 05:24 Hct 39.2 % (36.0-47.0) 02/21/21 05:24 MCV 87.3 fL (80.0-100.0) 02/21/21 05:24 MCH 28.9 pg (27.0-34.0) 02/21/21 05:24 MCHC 33.1 g/dL (33.0-35.0) 02/21/21 05:24 RDW 14.4 % (11.6-16.5) 02/21/21 05:24 Plt Count 307 X10^3/uL (150.0-450.0) 02/21/21 05:24 MPV 7.5 fL (7.4-11.0) 02/21/21 05:24 Neut % (Auto) 75.9 % (42.0-75.0) H 02/21/21 05:24 Lymph % (Auto) 18.0 % (21.0-51.0) L 02/21/21 05:24 [place] % (Auto) 5.5 % (0.0-13.0) 02/21/21 05:24 Eos % (Auto) 0.4 % (0.9-2.9) L 02/21/21 05:24 Baso % (Auto) 0.2 % (0.2-1.0) 02/21/21 05:24 Neut # (Auto) 9.5 x10^3/uL (2.2-4.8) H 02/21/21 05:24 Lymph # (Auto) 2.2 X10^3/uL (1.3-2.9) 02/21/21 05:24 [place] # (Auto) 0.7 x10^3/uL (0.3-0.8) 02/21/21 05:24 Eos # (Auto) 0.1 x10^3/uL (0.0-0.2) 02/21/21 05:24 Baso # (Auto) 0.0 X10^3/uL (0.0-0.1) 02/21/21 05:24 Absolute Nucleated RBC 0.1 /100WBC 02/21/21 05:24 Sodium 140 mmol/L (136-145) 02/21/21 05:24 Corrected Sodium TNP 02/21/21 05:24 Potassium 4.5 mmol/L (3.5-5.1) 02/21/21 05:24 Chloride 107 mmol/L (98-107) 02/21/21 05:24 Carbon Dioxide 25.2 mmol/L (21-32) 02/21/21 05:24 BUN 15 mg/dL (7-18) 02/21/21 05:24 Creatinine 0.85 mg/dL (0.55-1.02) 02/21/21 05:24 Est GFR (MDRD) Af Amer > 60 (>60) 02/21/21 05:24 Est GFR (MDRD) Non-Af > 60 (>60) 02/21/21 05:24 Glucose 77 mg/dL (65-99) 02/21/21 05:24 Hemoglobin A1c 5.8 % 02/20/21 04:06 Calcium 8.4 mg/dL (8.5-10.1) L 02/21/21 05:24 Corrected Calcium 9.0 mg/dL (8.5-10.1) 02/21/21 05:24 Magnesium 2.5 mg/dL (1.7-2.9) 02/19/21 11:44 Total Bilirubin 0.70 mg/dL (0.2-1.0) 02/21/21 05:24 AST 12 Units/L (15-37) L 02/21/21 05:24 ALT 19 Units/L (12-78) 02/21/21 05:24 Alkaline Phosphatase 74 Units/L (46-116) 02/21/21 05:24 Total Protein 6.9 g/dL (6.4-8.2) 02/21/21 05:24 Albumin 3.2 g/dL (3.4-5.0) L 02/21/21 05:24 Globulin 3.7 g/dL (2.5-4.5) 02/21/21 05:24 Albumin/Globulin Ratio 0.9 Ratio (1.1-2.1) L 02/21/21 05:24 Triglycerides 64 mg/dL (0-150) 02/19/21 21:50 Cholesterol 209 mg/dL (0-200) H 02/19/21 21:50 LDL Cholesterol, Calc 127 mg/dL (0-100) H 02/19/21 21:50 HDL Cholesterol 69 mg/dL (40-60) H 02/19/21 21:50 Cholesterol/HDL Ratio 3.0 (0.0-5.0) 02/19/21 21:50 Amylase 121 Units/L (25-115) H 02/21/21 05:24 Lipase 550 Units/L (73-393) H 02/21/21 05:24 Specimen Type Clean catch urine 02/19/21 12:03 Urine Color Yellow (YELLOW) 02/19/21 12:03 Urine Appearance Clear (CLEAR) 02/19/21 12:03 Urine pH 6.0 (5.0 - 8.0) 02/19/21 12:03 Ur Specific [place] 1.015 (1.000-1.030) 02/19/21 12:03 Urine Protein Negative (NEGATIVE) 02/19/21 12:03 Urine Glucose (UA) Negative (NEGATIVE) 02/19/21 12:03 Urine Ketones Negative (NEGATIVE) 02/19/21 12:03 Urine Occult Blood 1+ (NEGATIVE) 02/19/21 12:03 Urine Nitrite Negative (NEGATIVE) 02/19/21 12:03 Urine Bilirubin Negative (NEGATIVE) 02/19/21 12:03 Urine Urobilinogen Normal (NORMAL) 02/19/21 12:03 Ur Leukocyte Esterase Negative (NEGATIVE) 02/19/21 12:03 Urine RBC 0-2 /HPF (0-3) 02/19/21 12:03 Urine WBC None seen /HPF (0-5) 02/19/21 12:03 Ur Squamous Epith Cells Many /HPF (NEGATIVE) 02/19/21 12:03 Urine Bacteria Trace /HPF (NEGATIVE) 02/19/21 12:03 Ur Culture Indicated? No/not indicated 02/19/21 12:03 SARS-CoV-2 (PCR) Negative (NEGATIVE) 02/19/21 14:21 Influenza Type A (PCR) Negative (NEGATIVE) 02/19/21 14:21 Influenza Type B (PCR) Negative (NEGATIVE) 02/19/21 14:21 RSV (PCR) Negative (NEGATIVE) 02/19/21 14:21 - Plan (1) Acute pancreatitis Status: Acute Plan: Clear liquids today. IV HYDRATION, PAIN CONTROL. REPEAT AMYLASE AND LIPASE tomorrow and if remains stable may advance to low fat diet gradually.
[2021-02-21] MEDS ORDERED: MIRALAX POWDER (1 DOSE 17 G) PO SCH (21:00)
[2021-02-22] MEDS: NS 1000 ML 1,000 ML IV SCH (05:04)
[2021-02-22 05:48] LABS: BASOPHILS % (AUTO) 0.3 % (0.2-1.0); EOSINOPHILS # (AUTO) 0.1 x10^3/uL (0.0-0.2); EOSINOPHILS % (AUTO) 0.5 % (0.9-2.9); HEMATOCRIT 36.6 % (36.0-47.0); HEMOGLOBIN 12.1 g/dL (12.0-16.0); LYMPHOCYTES # (AUTO) 2.6 X10^3/uL (1.3-2.9); LYMPHOCYTES % (AUTO) 20.7 % (21.0-51.0); MEAN CORPUSCULAR HGB CONC 33.2 g/dL (33.0-35.0); MEAN CORPUSCULAR VOLUME 87.3 fL (80.0-100.0); MEAN PLATELET VOLUME 7.8 fL (7.4-11.0); MONOCYTES # (AUTO) 0.8 x10^3/uL (0.3-0.8); MONOCYTES % (AUTO) 6.4 % (0.0-13.0); NEUTROPHILS # (AUTO) 9.2 x10^3/uL (2.2-4.8); NEUTROPHILS % (AUTO) 72.1 % (42.0-75.0); PLATELET COUNT 294 X10^3/uL (150.0-450.0); RED BLOOD COUNT 4.19 X10^6/uL (3.5-5.4); RED CELL DISTRIBUTION WIDTH 14.8 % (11.6-16.5); WHITE BLOOD COUNT 12.8 X10^3/uL (3.6-10.0)
[2021-02-22 06:02] LABS: ALANINE AMINOTRANSFERASE 29 Units/L (12-78); ALBUMIN 2.9 g/dL (3.4-5.0); ALKALINE PHOSPHATASE 68 Units/L (46-116); AMYLASE 93 Units/L (25-115); ASPARTATE AMINO TRANSFERASE 13 Units/L (15-37); BLOOD UREA NITROGEN 14 mg/dL (7-18); CARBON DIOXIDE 25.9 mmol/L (21-32); CHLORIDE 110 mmol/L (98-107); COR CA(FOR HYPOALB) 8.9 mg/dL (8.5-10.1); CREATININE 0.86 mg/dL (0.55-1.02); LIPASE 504 Units/L (73-393); SODIUM 142 mmol/L (136-145); TOTAL PROTEIN 6.2 g/dL (6.4-8.2); eGFR NON BLACK RACES > 60 (>60)
[2021-02-22] MEDS: CARDIZEM CD 240 MG 24-HR PO SCH (10:03)
[2021-02-22] MEDS: PROTONIX INJ 40 MG VIAL IVP SCH (10:03)
[2021-02-22 12:28] VITALS: BP 131/78
[2021-02-24 07:54] LABS: IMMUNOGLOBULIN M 175 mg/dL (35-263)
== END 2021-02-22 14:30 | disposition home or self-care (01) | DRG 440 ==
LOC: ER 10:44 → MED/SURG 15:25
PROVIDERS: ADMIT Internal Medicine; ATTEND Internal Medicine
DX: K44.9 Diaphragmatic hernia without obstruction or gangrene; Z20.822 Contact with and (suspected) exposure to COVID-19; M54.40 Lumbago with sciatica, unspecified side; K21.9 Gastro-esophageal reflux disease without esophagitis; K85.80 Other acute pancreatitis without necrosis or infection; R10.31 Right lower quadrant pain